=== PATIENT | female | born 1930 | race Hispanic/Latino ===

== ENCOUNTER 2018-09-01 05:30 | Day surgery (SDC) | payer MEDICARE ==
[~2018-09-01] VITALS: Ht 134.6 cm; Wt 79.8 kg
[~2018-09-01 05:30] MED LIST: AMLO5TAB9 PO; ASPI-555 PO; ATOR40TA71 PO; AZELASTINE; DORZ1DRO7 OP; FOLI1TAB85 PO; FURO40TA5 PO; IRON1CAP32 PO; LABE200T5 PO; LATANOPROST; RANI150C4 PO
[2018-09-01] MEDS ORDERED: SODIUM CHLORIDE 0.9% 1000ML 1,000 ML IV ONE (05:37)
[2018-09-01 07:02] VITALS: BP 121/28
[2018-09-01] MEDS ORDERED: PROPOFOL 10 MG/ML 20ML VIAL IV ONE (07:23)
[2018-09-01 09:11] VITALS: BP 135/51
[2018-09-01 09:16] VITALS: BP 142/43
[2018-09-01 09:21] VITALS: BP 144/50
[2018-09-01 09:26] VITALS: BP 146/61
--- NOTE | 2018-09-01 09:40 | NUR ---
DC PT DC HOME VIA WC, NO DISTRESS NOTED. ACCOMPANIED BY FAMILY, PT DENIES ANY PAIN OR DISCOMFORTS
== END 2018-09-01 09:40 | disposition home or self-care (01) ==
LOC: ENDO 05:30 → DAH 05:30 → ENDO 09:40
PROVIDERS: ATTEND Internal Medicine
DX: K29.50 Unspecified chronic gastritis without bleeding (principal); K31.7 Polyp of stomach and duodenum; K31.89 Other diseases of stomach and duodenum; K22.8 Other specified diseases of esophagus; K21.0 Gastro-esophageal reflux disease with esophagitis; I10 Essential (primary) hypertension; E78.5 Hyperlipidemia, unspecified; D50.9 Iron deficiency anemia, unspecified; M19.90 Unspecified osteoarthritis, unspecified site; E11.9 Type 2 diabetes mellitus without complications; M81.0 Age-related osteoporosis without current pathological fracture; Z88.0 Allergy status to penicillin; Z98.49 Cataract extraction status, unspecified eye; Z98.890 Other specified postprocedural states; Z90.49 Acquired absence of other specified parts of digestive tract; Z90.710 Acquired absence of both cervix and uterus; Z79.899 Other long term (current) drug therapy; Z86.010 Personal history of colon polyps; Z72.89 Other problems related to lifestyle; Z82.49 Family history of ischemic heart disease and other diseases of the circulatory system; Z83.3 Family history of diabetes mellitus
CPT/HCPCS: 43239; 82948 ×2; 88305; 88342; 93005; A4606; J2704; J7030